=== PATIENT | male | born 1975 | race Caucasian/White ===

== ENCOUNTER 2019-11-21 13:22 | Emergency (ER) | payer SELFPAY ==
[2019-11-21 13:23] VITALS: BP 153/99; PULSE 104; RESP 17; TEMP 36.7; O2SAT 99; BMI 34.4
[2019-11-21] MEDS: Morphine 4 MG/ML Syringe IV ×2 (14:25→15:39)
[2019-11-21] MEDS: Ondansetron 4 MG/2 ML Vial IV (14:25)
[2019-11-21 14:32] LABS: Bacteria 0 SEEN /hpf (None Seen); Mucous, Urine 0 SEEN /hpf (<or=2+); Squamous Epithelial Cells - UA 0 SEEN /hpf (0-5); White Blood Cells 0 SEEN /hpf (0-5)
[2019-11-21 14:33] LABS: Color, Urine Amber (Yellow); Glucose, Dipstick Normal (Normal); Ketone-Dipstick Negative (Negative); Leukocyte Esterase-Dipstick Negative /ul (Negative); Nitrite-Dipstick Negative (Negative); Occult Blood-Urine 250 /ul (Negative); Protein-Dipstick Negative (Negative); Urine Bilirubin Dipstick Negative (Negative); Urine Clarity Cloudy (Clear); Urine Urobilinogen Normal (Normal)
[2019-11-21 14:40] LABS: Red Blood Cells-Urine 25-50 SEEN /hpf (0-5)
--- NOTE | 2019-11-21 15:44 | ED.DEP ---
ED Disposition - Plan for ED Patient: Instructions: ED Renal Stone w Colic Prescriptions: Oxycodone HCl/Acetaminophen [Percocet 5/325] 1 tablet PO Q6H PRN PRN 3 Days #12 tablet PRN Reason: Pain Ondansetron [Zofran Odt] 4 mg PO Q8H PRN PRN #10 tablet PRN Reason: Nausea Referrals: Care Physician,No Primary [Primary Care Provider] - Carlos Antoine MD [STAFF PHYSICIAN] -
[2019-11-21 16:00] VITALS: BP 170/115; PULSE 102; RESP 16; O2SAT 95
--- NOTE | 2019-11-21 16:48 | ED.DCSUM_ITS ---
- ER Visit Summary Date of Service: 11/21/19 Chief Complaint: Left flank pain History of Present Illness: The patient is a 43 M presenting with left flank pain. Patient states this started today. He has a history of multiple kidney stones in the past. He states they have always passed on their own. He tried Toradol at home without relief. He is visiting from out of town. He has nausea and vomiting. He has hematuria. Denies fever or other complaints. Physical Examination: Vitals are stable. Patient is afebrile. Alert no acute distress. HEENT exam is unremarkable. Neck is supple. Lungs are clear and equal bilaterally. Heart is regular rate and rhythm. Abdomen is soft nontender nondistended. No guarding or rebound Back: Left CVA tenderness Extremities are unremarkable. Skin is warm and dry. No rash Remainder of exam is unremarkable. Emergency Department Course and Treatment: Urinalysis shows 25-50 red blood cells, 0 white blood cells. Patient given morphine, Zofran IV. He states this feels exactly similar to his previous kidney stones which he gets every couple months. He states he has been told in the past he has had too many CT scans and does not want a CT scan at this time. He feels improved following pain medications. He is given Dr. Antoine as needed for follow-up. Advised return to ED for worsening complaints. Disposition: Discharge home Impression: Left flank pain suspect urolithiasis This note was generated with [employer] dictation software. It may contain incorrect words, spelling, and punctuation that were not noted in review of the chart prior to signing ED Disposition - Plan for ED Patient: Disposition: Home or Assisted Living Instructions: ED Renal Stone w Colic Prescriptions: Oxycodone HCl/Acetaminophen [Percocet 5/325] 1 tab PO Q6H PRN PRN 3 Days #12 tab PRN Reason: Pain Prescription Printed Ondansetron [Zofran Odt] 4 mg PO Q8H PRN PRN #10 tab PRN Reason: Nausea Prescription Printed Referrals: Carlos Antoine MD [STAFF PHYSICIAN] - Care Physician,No Primary [Primary Care Provider] -
== END 2019-11-21 16:01 | disposition home or self-care (01) ==
LOC: ED 14:37
PROVIDERS: Emergency Provider Emergency Medicine
DX: R10.9 Unspecified abdominal pain (principal); Z87.442 Personal history of urinary calculi; R11.2 Nausea with vomiting, unspecified; R31.9 Hematuria, unspecified
CPT/HCPCS: 81001; 96374; 96375; 96376; 99281; 99284; A4216; J2405